=== PATIENT | female | born 1955 | race Caucasian/White ===

== ENCOUNTER 2017-02-26 21:33 | Emergency (ER) | payer BC ==
[2017-02-26] MEDS ORDERED: NORMAL SALINE 1,000 ML IV ONE (21:49)
--- NOTE | 2017-02-26 22:02 | ERNOTE ---
Abdominal HPI - General Chief Complaint: Abdominal Pain Time Seen by Provider: 02/26/17 21:49 Source: patient Exam Limitations: no limitations - Immun/Allergies/Home Medications Immunizatons: IMMUNIZATION HX Immunizations Up to Date Yes History of Influenza Vaccine Yes Allergies/Adverse Reactions: Allergies morphine Allergy (Mild, Verified 02/26/17 22:04) cephalexin [Cephalexin] Adverse Reaction (Mild, Verified 02/26/17 21:44) Diarrhea ciprofloxacin [From Cipro] Adverse Reaction (Mild, Verified 02/26/17 21:44) Diarrhea ciprofloxacin HCl [From Cipro] Adverse Reaction (Mild, Verified 02/26/17 21:44) Diarrhea Sulfa (Sulfonamide Antibiotics) [Sulfa(Sulfonamide Antibiotics)] Adverse Reaction (Mild, Verified 02/26/17 21:44) rash Home Medications: HOME MEDICATIONS Gemfibrozil [Lopid] 600 mg PO BID 05/04/13 [Last Taken 05/17/13 09:00] Pravastatin Sodium [Pravachol] 20 mg PO HS 05/04/13 [Last Taken Unknown] Alendronate Sodium [Fosamax] 70 mg PO Q7D 10/07/14 [Last Taken Unknown] Blood Sugar Diagnostic, Drum [Accu-Chek Compact] 1 each MC DAILY 10/07/14 [Last Taken Unknown] Fluticasone Propionate [Flonase] 2 spray NS DAILY PRN 10/07/14 [Last Taken Unknown] Levothyroxine Sodium [Synthroid] 50 mcg PO DAILY 10/07/14 [Last Taken Unknown] Citalopram Hydrobromide [Citalopram HBr] 10 mg PO DAILY 04/26/16 [Last Taken Unknown] Multivit-Min/FA/Lycopen/Lutein [Centrum Silver Tablet] 1 each PO DAILY 04/26/16 [Last Taken Unknown] SUMAtriptan SUCCINATE [Imitrex] 25 mg PO DAILY PRN 04/26/16 [Last Taken Unknown] Nabumetone 750 mg PO BID #20 tablet 02/27/17 [Last Taken Unknown] - History of Present Illness Narrative: Pt had onset of LLQ yesterday and has persisted throughout the day, this evening it worsened and she had difficulty getting in and out of bed due to pain Timing: getting worse Quality: moderate, severe Activities at Onset: none Modifying Factors - (Worsens): Present: movement Associated Symptoms: Present: denies symptoms Prior Abdominal Problems: Present: none Review of Systems - Review of Systems Constitutional: Present: recent illness - sinus infection treated with doxy will be complete tomorrow EYE: Present: no symptoms reported ENT: Present: nose congestion - has improved with treatment Respiratory: Absent: shortness of breath Cardiology: Absent: chest pain Gastrointestinal/Abdominal: Present: See HPI. Absent: nausea, vomiting, diarrhea, constipation Genitourinary: Absent: frequency, pain, dysuria, hematuria Musculoskeletal: Absent: back pain, muscle pain Skin: Present: no symptoms reported Neurological: Present: no symptoms reported Endocrine: Present: no symptoms reported Hematologic/Lymphatic: Present: no symptoms reported Psych: Present: no symptoms reported - Patient's Past Medical History Patient History - Medical: Depression, Hypothyroidism, Migraines, Osteoarthritis Patient History - Cardiac/Respiratory: No pertinent hx Patient History - Cancer: No Hx of Cancer Patient History - Surgical Procedures: Cholecystectomy, Colonoscopy, Total Knee Replacement Patient History - Other: None - Family History Father Family History - Medical: Family History - Cardiac/Respiratory: Atrial Fibrillation, CVA/Stroke, Hypertension Mother Family History - Medical: Depression Family History - Cardiac/Respiratory: CVA/Stroke, Hyperlipidemia - Social History Living Situations: home Abuse History: No History of abuse Psych History: Hx of Depression, Current tx/ever been on anti-depressants or anti-anxiety meds Smoking Status: Never smoker Alcohol Use: none Drug Use: none - Immunizations Immunizations Up to Date: Yes History of Influenza Vaccine: Yes Physical Exam - Physical Exam General Appearance: Present: wd/wn, alert, mild distress Eye Exam: Normal inspection: bilateral Neck: Present: normal inspection, nontender Respiratory: Present: no respiratory distress, normal breath sounds, no accessory muscle use, chest nontender, lungs clear Cardiovascular/Chest: Present: regular rate, rhythm, no murmur, normal peripheral pulses Gastrointestinal/Abdominal: Present: normal bowel sounds, tenderness - LLQ and LUQ , guarding - mild, rebound - mild Back Exam: Present: normal inspection, normal range of motion, no CVA tenderness , no vertebral tenderness Extremity Exam: Present: normal inspection, no edema Neurological Exam: Present: alert, oriented, normal mood/affect, no motor/ sensory deficits Skin Exam: Present: normal color, warm/dry ED Progress - Results and Orders Patient's Lab Results:: I have reviewed the patient's lab results. Results and Orders: Laboratory Tests 02/26/17 02/26/17 02/26/17 21:50 21:50 22:52 WBC 9.0 Hgb 12.0 L Hct 35.0 L Sodium 142 Potassium 4.0 Chloride 105 Carbon Dioxide 27.2 Anion Gap 13.8 BUN 16 Creatinine 0.81 Est GFR (Non-Af Amer) 76 Random Glucose 149 H Calcium 9.5 Total Bilirubin 0.4 AST 19 ALT 40 Alkaline Phosphatase 85 Total Protein 7.8 Albumin 3.9 Amylase 52 Lipase 182 Urine Color Yellow Urine Appearance Clear Urine pH 7.0 Ur Specific [place] 1.010 Urine Protein Negative Urine Glucose (UA) Negative Urine Ketones Negative Urine Blood Negative Urine Nitrate Negative Urine Bilirubin Negative Urine Urobilinogen Normal Ur Leukocyte Esterase Negative Urine RBC None seen Urine WBC None seen Ur Epithelial Cells 0-5 Urine Bacteria Trace Urine Culture Comments No culture indicated - Vital Signs Patient's Vital Signs:: I have reviewed the patient's vital signs. Vital Signs: Vital Signs 02/26/17 21:40 Temperature 37.4 C Pulse Rate 82 Respiratory 16 Rate Blood Pressure 155/62 O2 Sat by Pulse 97 Oximetry - X-Ray X-Ray #1 X-Ray: abdomen Interpretation: Interp. by me X-ray Comments: increased stool in the lower quadrants, no evidence for obstruction. - CT/Ultrasound CT/Ultrasound Narrative: calcified granuloma in the RLL mild dependent atelectasis mild diffuse fatty liver infiltration several leiomyoma within the uterus Inflamation of the pericolonic fat adjacent to the mid left transverse colon without associated bowel wall thickening. Possible epiploic appendagitis - Progress/Reassessment Chief Complaint: Abdominal Pain Departure - Departure Clinical Impression: Epiploic appendagitis Disposition: Home self-care Condition: Good Additional Instructions: Take anti-inflammatory pain medication with food as scheduled until you are feeling better. See your regular doctor if not better in 5-7 days. Return to ER as necessary Referrals: Alison Stock MD [Primary Care Provider] - Prescriptions: Nabumetone 750 mg PO BID #20 tablet
--- OUTSIDE RECORDS SUMMARY | 2017-02-26 22:05 | XMS REPORT | Continuity of Care Document ---
:1955 Author Organization [facility] ([facility]) Address [address] [place] [address] Phone [phone] Care Team Providers Name Role Phone Alison Stock Primary Care Provider [phone] Source Comments This disclosure is being made pursuant to the Care Everywhere program, applicable federal and state laws, and may not contain all informaitonavailable regarding this patient.[facility] ([facility]) Active Allergies and Adverse Reactions Allergen Noted Date Severity Reactions Comments Cephalexin 10/12/2015 Unknown Morphine 10/23/2016 Mental status changes "I was just out of it" Sulfa (Sulfonamide 10/12/2015 Unknown Antibiotics) Current Medications Prescription Sig. Disp. Refills Start Date End Date Status levothyroxine 50 mcg take 1 tablet by 09/14/2014 Active tablet oral route every day multivitamin tablet take 1 tablet by 06/13/2010 Active ORAL route every day with food citalopram 10 mg tablet Take 10 mg by Active mouth daily gemfibrozil 600 mg Take 1 tablet 60 tablet 0 11/15/2016 Active tablet (600 mg total) by mouth 2 times daily. pravastatin 20 mg tablet Take 1 tablet 90 tablet 3 11/18/2016 Active (20 mg total) by mouth every evening. Active Problems Problem Noted Date Mixed hyperlipidemia 10/24/2015 Social History Tobacco Use Types Packs/Day Years Used Date Never Smoker Last Filed Vital Signs Vital Sign Reading Time Taken Blood Pressure 128/64 10/23/2016 11:55 AM [facility] Pulse 60 10/23/2016 11:55 AM [facility] [employer] [facility] Temperature - - Respiratory Rate - - Height 1.626 m (5' 4.02") 10/23/2016 11:55 AM [facility] [employer] [employer] Weight 72.576 kg (160 lb) 10/23/2016 11:55 AM [facility] [employer] [employer] Body Mass Index 27.45 10/23/2016 11:55 AM [facility] [employer] Oxygen Saturation - - Plan of Care Date Type Specialty Providers Description 10/22/2017 Appointment [facility], Chief Comp: Patient MD Reported Reason For [address] [place] [address] [phone] (Fax) Health Maintenance Due Date Last Done Comments HCV Screening 1955 Hepatitis B Vaccine (1 of 3 - Primary Series) 1955 Tdap Vaccine 1965 Lipid Disorder Screening 1972 Td Vaccine 1972 Cervical Cancer Screening 1984 Mammogram 1994 Colonoscopy 07/05/2004 Zoster Vaccine 2014 Influenza Vaccine: Seasonal (#1) 07/01/2016 Results from Last 3 Months Not on file
[2017-02-26 22:07] LABS: Mean Cell Volume 83.7 fl (78-100); Mean Corpuscular Hemoglobin 28.7 pg (27-31); Mean Corpuscular Hgb Conc 34.3 g/dl (32-36); Mean Platelet Volume 9.5 fl (6.0-9.5); Neutrophil # 5.3 K/mm3 (1.3-6.0); Neutrophil % 59.2 % (42-75.0); Platelet Count 343 K/mm3 (150-450); Red Blood Count 4.18 M/mm3 (4.2-5.4); Red Cell Distribution Width 12.3 % (11.5-14.0)
[2017-02-26 22:12] LABS: Albumin * 3.9 gm/dl (3.4-5.0); Anion Gap 13.8 mmol/L (6.8-13.8); BUN/Creatinine Ratio 19.8 (9.0-21.6); Bilirubin, Total 0.4 mg/dL (0.0-1.1); Ca. Corrected For Albumin 9.3 mg/dL (8.4-10.2); Calcium * 9.5 mg/dL (7.9-10.9); Carbon Dioxide 27.2 mmol/L (24-32.6); Total Protein 7.8 gm/dL (6.2-8.2)
[2017-02-26 23:03] LABS: Urine Bilirubin Negative (NEGATIVE); Urine Blood Negative /ul (NEGATIVE); Urine Ketone Negative (NEGATIVE); Urine Nitrite Negative (NEGATIVE); Urine Protein Negative (NEGATIVE); Urine Urobilinogen Normal (NORMAL)
[2017-02-26 23:14] LABS: Urine Appearance Clear; Urine Color Yellow
[2017-02-26 23:15] LABS: Urine Bacteria TRACE; Urine RBC None Seen /hpf (0-5); Urine WBC None Seen /hpf (0-5)
[2017-02-26] MEDS ORDERED: ONDANSETRON HCL/PF 2 MG/ML VIAL ONE (23:45)
[2017-02-26] MEDS ORDERED: ONDANSETRON HCL/PF 2 MG/ML VIAL IV ONE (23:45)
[2017-02-26] MEDS ORDERED: DIATRIZOATE MEGLU/DIATRIZO SOD 30 ML BTL ONE (23:46)
[2017-02-26] MEDS ORDERED: NALBUPHINE HCL 20 MG/ML AMPUL ONE (23:46)
[2017-02-26] MEDS ORDERED: NALBUPHINE HCL 20 MG/ML AMPUL IV ONE (23:46)
[2017-02-26] MEDS ORDERED: DIATRIZOATE MEGLU/DIATRIZO SOD 30 ML BTL PO ONE (23:54)
[2017-02-27] MEDS ORDERED: KETOROLAC TROMETHAMINE 30 MG/ML VIAL IV ONE (02:47)
[2017-02-27] MEDS ORDERED: KETOROLAC TROMETHAMINE 30 MG/ML VIAL ONE (02:48)
[2017-02-27 03:24] VITALS: BP 140/60
== END 2017-02-27 03:00 | disposition home or self-care (01) ==
LOC: ER 21:33
DX: K63.89 Other specified diseases of intestine (principal)